=== PATIENT | female | born 1970 | race Caucasian/White ===

== ENCOUNTER 2017-02-13 19:51 | Inpatient (IN) | payer OTHER ==
[~2017-02-13] VITALS: Ht 160 cm; Wt 113.6 kg
[2017-02-13 20:12] LABS: HEMATOCRIT 35.6 % (36.0-46.0); MCH 29.1 PG (29.0-34.0); MCHC 32.9 G/DL (30.0-36.0); MCV 88.6 FL (83-99); MEAN PLAT.VOLUME 8.2 uM^3 (9.5-12.4); PLATELET COUNT 665 K/uL (156-360); RBC DIS.WIDTH-CV 13.2 % (11.8-14.6); RBC DIS.WIDTH-SD 43.3 % (39-53); RED BLOOD COUNT 4.02 M/uL (3.80-5.20); WHITE BLOOD COUNT 17.5 K/uL (4.1-10.2)
[2017-02-13 20:22] LABS: CHLORIDE 95 mEq/L (99-109); POTASSIUM 4.4 mEq/L (3.7-5.4); SODIUM 136 mEq/L (136-147)
[2017-02-13 20:24] LABS: GLUCOSE 138 mg/dL (70-99)
[2017-02-13 20:25] LABS: ANION GAP 11 MEQ/L (2-14)
[2017-02-13 20:28] LABS: GFR ESTIMATE (CALCULATED) 6 mL/min/
[2017-02-13 20:29] LABS: UREA NITROGEN (BUN) 63 mg/dL (9-23)
[2017-02-13] MEDS ORDERED: LISINOPRIL40 MG PO (22:31)
[2017-02-13] MEDS ORDERED: LITHIUM CARBON300 M2 PO (22:31)
[2017-02-13] MEDS ORDERED: LAMOTRIGINE200 MG PO (22:32)
[2017-02-13] MEDS ORDERED: LEVOTHYROXINE50 MCG PO (22:32)
[2017-02-13] MEDS ORDERED: LITHOBID300 MG PO (22:32)
[2017-02-13] MEDS ORDERED: BUPROPION HCL150 M2 PO (22:32)
[2017-02-13 23:43] LABS: ADD MIUA? YES; BILIRUBIN NEGATIVE; BLOOD NEGATIVE; COLOR YELLOW ((YELLOW)); GLUCOSE (STRIP) NEGATIVE; KETONES NEGATIVE; LEUKOCYTES TRACE; NITRITE NEGATIVE; PROTEIN (STRIP) 30; SPECIFIC GRAVITY 1.014 (1.000-1.030); UROBILINOGEN 0.2 MG/DL (0.2-1.0)
[2017-02-14] LABS: BACTERIA RARE /HPF; EPITHELIAL CELLS 1+ /HPF; HYALINE CASTS 0-5 /LPF; MUCUS TRACE /LPF; RED BLOOD CELLS 0-5 /HPF (0-5); UCUL ADDED? NO
[2017-02-14 00:02] LABS: GRANULAR CASTS 40-45 /LPF
[2017-02-14 00:21] VITALS: BP 104/69
[2017-02-14 00:28] LABS: ALKALINE PHOSPHATASE 91 IU/L (3-129); CREATINE KINASE 12 IU/L (1-294); IRON 68 MCG/DL (35-150); MAGNESIUM 2.8 mg/dl (1.3-2.7); TOTAL BILIRUBIN 0.5 MG/DL (0.0-1.0)
[2017-02-14 04:05] LABS: URIC ACID 16.6 mg/dL (3.1-9.2)
[2017-02-14 05:49] LABS: POINT-OF-CARE METER ID UU13113725
[2017-02-14 06:51] LABS: ANION GAP 7 MEQ/L (2-14); CHLORIDE 106 MEQ/L (99-109); GLUCOSE 113 mg/dL (70-99); POTASSIUM 4.1 MEQ/L (3.7-5.4); SAMPLE HEMOLYSIS CHECK 0; SAMPLE ICTERIC CHECK 0; SAMPLE LIPEMIA CHECK 0; SODIUM 142 MEQ/L (136-147); UREA NITROGEN (BUN) 58 mg/dL (9-23)
[2017-02-14 06:53] LABS: GFR ESTIMATE (CALCULATED) 9 mL/min/
[2017-02-14 06:57] LABS: MCH 29.8 PG (29.0-34.0); MCHC 33.4 G/DL (30.0-36.0); MCV 89.2 FL (83-99); MEAN PLAT.VOLUME 8.4 uM^3 (9.5-12.4); PLATELET COUNT 520 K/uL (156-360); RBC DIS.WIDTH-CV 13.1 % (11.8-14.6); RBC DIS.WIDTH-SD 42.8 % (39-53); RED BLOOD COUNT 3.25 M/uL (3.80-5.20); WHITE BLOOD COUNT 15.5 K/uL (4.1-10.2)
[2017-02-14 07:48] LABS: POINT-OF-CARE METER ID UU13113725
[2017-02-14 07:55] VITALS: BP 100/52
[2017-02-14 08:17] LABS: FERRITIN 193 NG/ML (10-291)
[2017-02-14 10:15] LABS: LIPASE 121 U/L (1.0-51.0)
[2017-02-14 11:51] LABS: POINT-OF-CARE METER ID UU13113725
[2017-02-14 12:13] VITALS: BP 120/63
[2017-02-14 16:48] VITALS: BP 98/520
[2017-02-14 21:04] VITALS: BP 102/57
[2017-02-14 21:47] LABS: POINT-OF-CARE METER ID UU13113725
[2017-02-14 23:02] VITALS: BP 98/64
[2017-02-15 03:17] VITALS: BP 109/53
[2017-02-15 05:55] LABS: POINT-OF-CARE METER ID UU13113725
[2017-02-15 06:33] LABS: BASOPHIL COUNT 0.1 K/uL (0-0.1); EOSINOPHIL (%) 3.6 % (0-5); EOSINOPHIL COUNT 0.4 K/uL (0-0.3); IMMATURE GRANULOCYTE (%) 0.4 % (0.0-0.7); INSTRUMENT ABS NEUTROPHIL CT 6.8 K/uL; LYMPHOCYTE COUNT 3.1 K/uL (1.0-2.8); MCH 28.8 PG (29.0-34.0); MCHC 32.1 G/DL (30.0-36.0); MCV 89.7 FL (83-99); MEAN PLAT.VOLUME 8.4 uM^3 (9.5-12.4); MONOCYTE (%) 6.2 % (3-12); MONOCYTE COUNT 0.7 K/uL (0-0.8); NEUTROPHIL (%) 61.6 % (45-76); NEUTROPHIL COUNT 6.8 K/uL (1.8-6.4); PLATELET COUNT 487 K/uL (156-360); RBC DIS.WIDTH-CV 13.2 % (11.8-14.6); RED BLOOD COUNT 3.12 M/uL (3.80-5.20); WHITE BLOOD COUNT 11.1 K/uL (4.1-10.2)
[2017-02-15 06:51] LABS: ANION GAP 4 MEQ/L (2-14); CHLORIDE 110 MEQ/L (99-109); GFR ESTIMATE (CALCULATED) 27 mL/min/; GLUCOSE 113 mg/dL (70-99); MAGNESIUM 2.5 mg/dl (1.3-2.7); POTASSIUM 4.3 MEQ/L (3.7-5.4); SAMPLE HEMOLYSIS CHECK 0; SAMPLE ICTERIC CHECK 0; SAMPLE LIPEMIA CHECK 0; SODIUM 141 MEQ/L (136-147); UREA NITROGEN (BUN) 30 mg/dL (9-23)
[2017-02-15 08:22] VITALS: BP 93/54
[2017-02-15 11:06] LABS: POINT-OF-CARE METER ID UU13113725
[2017-02-15 11:38] VITALS: BP 91/44
[2017-02-15 16:20] LABS: POINT-OF-CARE METER ID UU13113725
[2017-02-15 16:36] VITALS: BP 100/55
[2017-02-15 19:54] VITALS: BP 99/57
[2017-02-15 22:02] LABS: POINT-OF-CARE METER ID UU13113725
[2017-02-15 23:38] VITALS: BP 100/55
[2017-02-16 03:47] VITALS: BP 88/52
[2017-02-16 06:45] LABS: BASOPHIL COUNT 0.1 K/uL (0-0.1); EOSINOPHIL (%) 4.2 % (0-5); EOSINOPHIL COUNT 0.4 K/uL (0-0.3); HEMATOCRIT 29.3 % (36.0-46.0); IMMATURE GRANULOCYTE (%) 0.4 % (0.0-0.7); INSTRUMENT ABS NEUTROPHIL CT 6.2 K/uL; LYMPHOCYTE COUNT 3.1 K/uL (1.0-2.8); MCH 29.5 PG (29.0-34.0); MCHC 32.8 G/DL (30.0-36.0); MCV 90.2 FL (83-99); MEAN PLAT.VOLUME 8.6 uM^3 (9.5-12.4); MONOCYTE (%) 6.3 % (3-12); MONOCYTE COUNT 0.7 K/uL (0-0.8); NEUTROPHIL (%) 59.2 % (45-76); NEUTROPHIL COUNT 6.2 K/uL (1.8-6.4); PLATELET COUNT 525 K/uL (156-360); RBC DIS.WIDTH-CV 13.1 % (11.8-14.6); RBC DIS.WIDTH-SD 43.5 % (39-53); RED BLOOD COUNT 3.25 M/uL (3.80-5.20); WHITE BLOOD COUNT 10.5 K/uL (4.1-10.2)
[2017-02-16 07:01] VITALS: BP 117/69
[2017-02-16 07:08] LABS: POINT-OF-CARE METER ID UU13113725
[2017-02-16 07:11] LABS: ANION GAP 4 MEQ/L (2-14); CHLORIDE 110 MEQ/L (99-109); GFR ESTIMATE (CALCULATED) 43 mL/min/; GLUCOSE 123 mg/dL (70-99); IRON 76 MCG/DL (35-150); POTASSIUM 4.2 MEQ/L (3.7-5.4); SAMPLE HEMOLYSIS CHECK 0; SAMPLE ICTERIC CHECK 0; SAMPLE LIPEMIA CHECK 0; SODIUM 139 MEQ/L (136-147); UREA NITROGEN (BUN) 15 mg/dL (9-23)
[2017-02-16 11:25] LABS: POINT-OF-CARE METER ID UU13113725
[2017-02-16 15:54] VITALS: BP 103/59
[2017-02-16 16:12] LABS: POINT-OF-CARE METER ID UU13113725
[2017-02-16 21:34] LABS: POINT-OF-CARE METER ID UU13113725
[2017-02-16 22:42] VITALS: BP 88/50
[2017-02-17 05:55] LABS: POINT-OF-CARE METER ID UU13113725
[2017-02-17 06:33] LABS: BASOPHIL COUNT 0.1 K/uL (0-0.1); EOSINOPHIL (%) 3.4 % (0-5); EOSINOPHIL COUNT 0.4 K/uL (0-0.3); HEMATOCRIT 30.8 % (36.0-46.0); IMMATURE GRANULOCYTE (%) 0.7 % (0.0-0.7); IMMATURE GRANULOCYTE COUNT 0.1 K/uL; INSTRUMENT ABS NEUTROPHIL CT 7.4 K/uL; LYMPHOCYTE COUNT 3.3 K/uL (1.0-2.8); MCHC 32.8 G/DL (30.0-36.0); MCV 88.5 FL (83-99); MEAN PLAT.VOLUME 8.4 uM^3 (9.5-12.4); MONOCYTE (%) 5.4 % (3-12); MONOCYTE COUNT 0.6 K/uL (0-0.8); NEUTROPHIL (%) 62.1 % (45-76); NEUTROPHIL COUNT 7.4 K/uL (1.8-6.4); PLATELET COUNT 561 K/uL (156-360); RBC DIS.WIDTH-CV 13.2 % (11.8-14.6); RBC DIS.WIDTH-SD 42.8 % (39-53); RED BLOOD COUNT 3.48 M/uL (3.80-5.20); WHITE BLOOD COUNT 11.8 K/uL (4.1-10.2)
[2017-02-17 06:51] VITALS: BP 140/91
[2017-02-17 06:56] LABS: ANION GAP 7 MEQ/L (2-14); CHLORIDE 109 MEQ/L (99-109); GFR ESTIMATE (CALCULATED) 47 mL/min/; GLUCOSE 145 mg/dL (70-99); POTASSIUM 4.1 MEQ/L (3.7-5.4); SAMPLE HEMOLYSIS CHECK 0; SAMPLE ICTERIC CHECK 0; SAMPLE LIPEMIA CHECK 0; SODIUM 139 MEQ/L (136-147); UREA NITROGEN (BUN) 10 mg/dL (9-23)
[2017-02-17] MEDS ORDERED: METOCLOPRAMIDE H5 MG PO (08:04)
[2017-02-17] MEDS ORDERED: PANTOPRAZOLE SO40 MG PO (08:04)
== END 2017-02-17 10:18 | disposition home or self-care (01) | DRG 683 ==
LOC: EME 19:51 → EDOF 23:24 → 5EAST 23:24
PROVIDERS: Hospitalist; Internal Medicine; Internal Medicine Nephrology
DX: N17.9 Acute kidney failure, unspecified (principal); D61.818 Other pancytopenia; Z68.41 Body mass index [BMI] 40.0-44.9, adult; E86.0 Dehydration; G25.1 Drug-induced tremor; T43.591A Poisoning by other antipsychotics and neuroleptics, accidental (unintentional), initial encounter; E11.43 Type 2 diabetes mellitus with diabetic autonomic (poly)neuropathy; K31.84 Gastroparesis; E79.0 Hyperuricemia without signs of inflammatory arthritis and tophaceous disease; K80.20 Calculus of gallbladder without cholecystitis without obstruction; I10 Essential (primary) hypertension; E03.9 Hypothyroidism, unspecified; F31.9 Bipolar disorder, unspecified; E66.9 Obesity, unspecified; Z79.4 Long term (current) use of insulin; Z91.14 Patient's other noncompliance with medication regimen
CPT/HCPCS: 71020; 74177; 76705; 80048; 80069; 80076; 80178; 81003; 82010; 82436; 82550; 82728; 82948; 83540; 83690; 83735; 83935; 84100; 84133; 84300; 84466; 84550; 85025; 85027; 93005; 99281; 99285; J1644; J1815; J2405; J2765; J7030

== ENCOUNTER 2017-11-24 03:27 | Emergency (ER) | payer OTHER ==
[~2017-11-24] VITALS: Ht 160 cm; Wt 121.5 kg
[~2017-11-24 03:27] MED LIST: BUPROPION HCL150 M2 PO; LAMOTRIGINE200 MG PO; LEVOTHYROXINE50 MCG PO; LISINOPRIL40 MG PO; LITHIUM CARBON300 M2 PO; LITHOBID300 MG PO; METOCLOPRAMIDE H5 MG PO; PANTOPRAZOLE SO40 MG PO
[2017-11-24] MEDS ORDERED: PREDNISONE10 MG PO (04:04)
[2017-11-24 04:51] VITALS: BP 147/98
== END 2017-11-24 04:51 | disposition home or self-care (01) ==
LOC: EME 03:27
DX: L30.9 Dermatitis, unspecified (principal); E11.9 Type 2 diabetes mellitus without complications; F32.9 Major depressive disorder, single episode, unspecified; F41.9 Anxiety disorder, unspecified